=== PATIENT | female | born 1990 | race African-American/Black ===

== ENCOUNTER 2017-03-05 23:19 | Emergency (ER) | payer SELFPAY ==
[~2017-03-05] VITALS: Ht 157.5 cm; Wt 97.5 kg
[2017-03-05 23:42] VITALS: BP 144/90
--- NOTE | 2017-03-05 23:42 | PHYS DOC ---
Past Medical History Past Medical History: Asthma, Other Additional Past Medical Histor: SEASONAL ALLERGIES Past Surgical History: No Surgical History Alcohol Use: None Drug Use: None Adult General Chief Complaint Chief Complaint: MULTIPLE COMPLAINTS HPI HPI Patient is a 26 year old F who presents with left pelvic pain. Patient states that she's has a history of PCOS and periodically has pain like this. Patient states the pain started earlier today and has progressed all night to her left pelvis. Patient denies any nausea or vomiting. Patient denies any dysuria. Patient denies any chest pain or shortness of breath. Patient states she has irregular menstrual cycle secondary to the PCOS. Patient describes a slight pinkish discharge in the vagina. Patient denies any recent intercourse. Patient has no other complaints. Review of Systems Review of Systems GEN: Denies fevers, chills, sweats HEENT: Denies blurred vision, sore throat CV: Denies chest pain RESP: Denies shortness of air, cough GI: Denies n/v/d : Left pelvic pain NEURO: Denies confusion, dizziness MSK: Denies weakness, joint pain/swelling Current Medications Current Medications Current Medications Medications (Trade) Dose Ordered Sig/Sharon Start Time Stop Time Status Last Admin Dose Admin Ketorolac Tromethamine (Toradol) 30 mg 1X ONCE 03/05/17 23:45 03/05/17 23:46 DC Sodium Chloride 1,000 ml @ 1,000 mls/hr 1X ONCE 03/05/17 23:45 03/06/17 00:18 DC Allergies Allergies Allergies Coded Allergies Type Severity Reaction Last Updated Verified No Known Drug Allergies 11/02/13 No Physical Exam Physical Exam GEN.: No apparent distress. Alert and oriented. HEENT: Head is normocephalic, atraumatic NECK: Supple. LUNGS: CTAB. HEART: RRR, S1, S2 present. Peripheral pulses intact ABDOMEN: Soft, left pelvic pain tenderness palpation, no rebound tenderness, no abdominal distention. Positive bowel sounds. EXTREMITIES: Without any cyanosis. NEUROLOGIC: Normal speech, normal tone PSYCHIATRIC: Normal affect, normal mood. SKIN: No ulcerations Current Patient Data Vital Signs Vital Signs Date Time Temp Pulse Resp B/P (MAP) Pulse Ox O2 Delivery O2 Flow Rate FiO2 03/05/17 23:42 97.8 104 20 144/90 (108) 99 Room Air 97.8 Lab Values Laboratory Tests Test 03/05/17 22:48 9/8/17 23:25 POC Urine HCG, Qualitative Hcg negative (Negative) Urine Collection Type Unknown Urine Color Yellow Urine Clarity Clear Urine pH 7.0 Urine Specific [place] 1.020 Urine Protein Negative mg/dL (NEG-TRACE) Urine Glucose (UA) Negative mg/dL (NEG) Urine Ketones (Stick) Negative mg/dL (NEG) Urine Blood Small (NEG) Urine Nitrite Negative (NEG) Urine Bilirubin Negative (NEG) Urine Urobilinogen Dipstick 0.2 mg/dL (0.2 mg/dL) Urine Leukocyte Esterase Negative (NEG) Urine RBC 0 /HPF (0-2) Urine WBC Occ /HPF (0-4) Urine Squamous Epithelial Cells Few /LPF Urine Bacteria 0 /HPF (0-FEW) Urine Mucus Slight /LPF EKG EKG [] Radiology/Procedures Radiology/Procedures [] Course & Med Decision Making Course & Med Decision Making Pertinent Labs and Imaging studies reviewed. (See chart for details) ED course: Patient was seen and examined emergency room CBC, CMP, UA, and urine., Ultrasound transvaginal ordered 0005: She refused blood draw and IV labs 0020: Patient elected to leave AGAINST MEDICAL ADVICE. I had a long discussion with the patient and she states she was unhappy with the way she was treated emergency room and did not want to stay for ultrasound results and did not want to get lab. Strongly urged the patient to stay for the ultrasound results for fear of possible ovarian torsion however the patient did not want stay in the emergency room any longer. Patient understands all risks of leaving including and disability. [] Dragon Disclaimer Dragon Disclaimer This electronic medical record was generated, in whole or in part, using a voice recognition dictation system. Departure Departure Impression: Primary Impression: Pelvic pain Additional Impression: Left against medical advice Disposition: 07 AGAINST MEDICAL ADVICE Condition: STABLE Referrals: NO PCP (PCP) Patient Instructions: Pelvic Pain, Female Additional Instructions: Please f/u with your PCP in 1-2 days Problem Qualifiers AMADA JUNG DO Mar 05, 2017 23:42
[2017-03-05] MEDS ORDERED: IV NORMAL SALINE 1000ML BAG 1,000 ML IV ONE (23:45)
[2017-03-05] MEDS ORDERED: KETOROLAC TROMETHAMINE 30 MG/ML INJ. IV ONE (23:45)
[2017-03-05 23:46] LABS: BILIRUBIN,URINE NEGATIVE (NEG); GLUCOSE,URINE NEGATIVE (NEG); NITRITE,URINE NEGATIVE (NEG); PROTEIN,URINE NEGATIVE (NEG-TRACE); UROBILINOGEN,URINE 0.2 mg/dL (0.2 mg/dL)
[2017-03-05 23:59] LABS: BACTERIA,URINE 0 /HPF (0-FEW); RBC,URINE 0 /HPF (0-2); SQUAMOUS EPITHELIAL CELL,UR FEW /LPF; WBC,URINE OCC /HPF (0-4)
--- NOTE | 2017-03-06 00:38 | RAD ---
INDICATION: Pelvic pressure and pain COMPARISON: None. TECHNIQUE: Grayscale and color ultrasound images uterus and adnexa. Transabdominal and transvaginal images obtained. FINDINGS: Uterus: 68 x 35 x 27 mm. Endometrial Stripe: 3 mm. Right Ovary: 43 x 25 x 23 mm. Left Ovary: 40 x 26 x 22 mm. Vascular flow identified to bilateral ovaries. Ovarian follicles are seen bilaterally. IMPRESSION: 1. Vascular flow is seen to the bilateral ovaries. Electronically signed by: Rusty Valdes MD (03/06/2017 12:35 AM) [id number]
== END 2017-03-06 00:18 | disposition left against medical advice (07) ==
LOC: ER 23:19
DX: R10.2 Pelvic and perineal pain (principal); J45.909 Unspecified asthma, uncomplicated; E28.2 Polycystic ovarian syndrome
CPT/HCPCS: 76830; 76856; 81001; 81025; 99285-25